=== PATIENT | male | born 1935 | race Caucasian/White ===

== ENCOUNTER → 2019-03-17 | Outpatient (CLI) | payer OTHER ==
[~2019-03-17] MED LIST: ASPI81CH PO; ROSU10TA PO
== END | disposition home or self-care (01) ==
LOC: LAB SHORT 14:21 → PLD 14:21
DX: D48.5 Neoplasm of uncertain behavior of skin (principal)
CPT/HCPCS: 88305

== ENCOUNTER 2024-05-07 12:59 | Inpatient (IN) | payer OTHER ==
[~2024-05-07] VITALS: Ht 167.6 cm; Wt 81.1 kg
[2024-05-07 14:04] LABS: Albumin, Blood 3.8 g/dL (3.4-5.0); Albumin/Globulin Ratio 0.9 (0.8-1.8); Bilirubin, Total 0.5 mg/dL (0.1-1.0); Calcium, Blood 9.3 mg/dL (8.5-10.1); Creatinine, Blood 0.79 mg/dL (0.60-1.20); Globulin, Blood 4.1 g/dL (2.2-4.0); Potassium, Blood 3.7 mmol/L (3.5-5.5); Total Protein, Blood 7.9 g/dL (6.4-8.2)
[2024-05-07] MEDS ORDERED: Morphine Sulfate 4 MG/1 ML Injection IV ONE (14:10)
[2024-05-07 14:17] LABS: BASOPHILS ABSOLUTE AUTO 0.02 K/mm3 (0.00-0.23); BASOPHILS PERCENT AUTO 0 % (0-2); EOSINOPHILS ABSOLUTE AUTO 0.04 K/mm3 (0.00-0.68); EOSINOPHILS PERCENT AUTO 0 % (0-6); Hematocrit 42.7 % (37.0-53.0); Hemoglobin 15.1 g/dL (13.5-17.5); IMMATURE GRAN ABSOLUTE AUTO 0.08 K/mm3 (0.00-0.10); IMMATURE GRAN PERCENT AUTO 1 % (0-1); LYMPHOCYTES ABSOLUTE AUTO 1.49 K/mm3 (0.84-5.20); LYMPHOCYTES PERCENT AUTO 12 % (21-46); MONOCYTES ABSOLUTE AUTO 0.83 K/mm3 (0.16-1.47); MONOCYTES PERCENT AUTO 7 % (4-13); Mean Corpuscular HGB 34.7 pg (26.0-34.0); Mean Corpuscular HGB Conc 35.4 g/dL (31.5-36.5); Mean Corpuscular Volume 98 fL (80-100); Mean Platelet Volume 9.6 fL (9.1-12.4); NEUTROPHILS ABSOLUTE AUTO 9.82 K/mm3 (1.96-9.15); NEUTROPHILS PERCENT AUTO 80 % (41-73); Platelet Count 196 K/mm3 (150-400); RDW Coefficient Variation 14.1 % (11.7-14.2); RDW Standard Deviation 51.7 fL (35.1-46.3); Red Blood Cell Count 4.35 M/mm3 (4.30-5.90); White Blood Cell Count 12.28 K/mm3 (4.00-11.30)
[2024-05-07] MEDS ORDERED: Ondansetron HCl 2 MG / ML 2ML Vial IV PRN (16:30)
[2024-05-07] MEDS ORDERED: FLU VACC TS2024-25(6MOS UP)/PF 45 MCG/0.5 ML SYRINGE IM SCH (16:30)
[2024-05-07] MEDS ORDERED: OxyCODONE 5 mg/Acetamin 325 mg TABLET PO PRN (16:30)
[2024-05-07] MEDS ORDERED: FentaNYL Citrate 50 MCG/ML 2 ML Injection IV PRN (16:35)
[2024-05-07 18:34] VITALS: BP 126/97
--- NOTE | 2024-05-07 18:38 | NUR ---
ARRIVED FROM THE ED VIA MAMADOU GÓMEZ, REPORT PAIN IS TOLERABLE ONCE SETTLED AND REPOSITIONED IN BED, ORIENTED TO ROOM AND CALL LIGHT SYSTEM, REPORT TO WADE MANCILLA.
[2024-05-07] MEDS ORDERED: OXYC5 PO (19:38)
[2024-05-07] MEDS ORDERED: PRED20 PO (19:38)
[2024-05-07] MEDS ORDERED: IBU800 M1 PO (19:39)
[2024-05-07] MEDS ORDERED: Preservision S1 EACH PO (19:44)
[2024-05-07] MEDS ORDERED: Sennosides 8.6 MG Tab PO SCH (21:00)
[2024-05-07] MEDS ORDERED: NS 1,000 ML IV SCH (23:00)
[2024-05-08] VITALS (17 sets, daily range): BP systolic 125–163; BP diastolic 57–89
--- NOTE | 2024-05-08 05:33 | NUR ---
SHIFT SUMMARY PT CHANGE OF SHIFT ADMIT FOR LEFT HIP FRACTURE. PT HAS RESTED MOST OF THE NIGHT. PAIN MANANGED WITH MEDS PER EMAR. ORTHO HAS BEEN CONSULTED. PT NPO SINCE MIDNIGHT FOR POSSIBLE PROCEDURE TODAY. PT VOIDING. IVF INFUSING. BED IN LOWEST POSITION, CALL LIGHT WITHIN REACH.
--- NOTE | 2024-05-08 07:16 | NUR ---
BEDSIDE REPORT RECIEVED. PT RESTING IN BED, A&O X4, VSS, RESPIRATIONS EVEN AND UNLABORED. PAIN MANAGED AT THIS TIME. CALL LIGHT WITHIN REACH.
[2024-05-08] MEDS ORDERED: Tranexamic Acid 100 ML IV SCH (10:45)
[2024-05-08] MEDS ORDERED: CeFAZolin Sodium 2,000 MG in NS 100 ML IV SCH (10:45)
[2024-05-08] MEDS ORDERED: Vancomycin HCL 1,000 MG in NS 250 ML IV SCH (10:45)
[2024-05-08] MEDS ORDERED: Lactated Ringer's 1,000 ML IV SCH (11:05)
--- NOTE | 2024-05-08 11:54 | NUR ---
PT TO OR
[2024-05-08] MEDS ORDERED: propofoL 20 ML IV ONE (12:19)
[2024-05-08] MEDS ORDERED: FentaNYL Citrate 50 MCG/ML 2 ML Injection ONE (12:21)
[2024-05-08] MEDS ORDERED: Ondansetron HCl 2 MG / ML 2ML Vial ONE (13:03)
[2024-05-08] MEDS ORDERED: Dexamethasone Sod Phos 10 MG/ML 1ML VIAL ONE (13:03)
[2024-05-08] MEDS ORDERED: OxyCODONE HCL 5 MG TAB PO PRN (13:05)
[2024-05-08] MEDS ORDERED: HYDROmorphone HCl/Pf 1MG SYR ONE ×2 (13:20→15:10)
[2024-05-08] MEDS ORDERED: EpiNEPhrine 1 MG/1 ML 1ML Vial ONE (14:18)
[2024-05-08] MEDS ORDERED: Bupivacaine 0.5% HCl 5 MG/ML 30MLVIAL ONE (14:18)
[2024-05-08] MEDS ORDERED: Magnesium Hydroxide Conc 10 ML UDC PO PRN (15:20)
[2024-05-08] MEDS ORDERED: NS KCl 20mEq 1,000 ML IV SCH (15:20)
[2024-05-08] MEDS ORDERED: FLU VACC TS2024-25(6MOS UP)/PF 45 MCG/0.5 ML SYRINGE IM SCH (15:20)
[2024-05-08] MEDS ORDERED: Bisacodyl 10 MG Supp PR PRN (15:20)
--- NOTE | 2024-05-08 16:38 | NUR ---
PT ARRIVED BACK TO UNIT FROM PACU AT APPROXIMATELY 1600. VSS. WAKES TO VOICE BUT STATED TIRED. 02 SATS MID 90S ON 4L NC. RR 12-13. SLEEPS WHEN UNDISTURBED. PLACED ICE PACK TO L HIP FOR COMFORT. BULKY DRESSING TO L HIP CDI. CALL LIGHT IN REACH. LR HANGING TO GRAVITY. TXA ADMINISTERED IN PACU.
--- NOTE | 2024-05-08 17:06 | NUR ---
PT SATS DECREASING TO 87% ON 4L NC. RR 12. INCREASED 02 TO 5L.
--- NOTE | 2024-05-08 17:14 | NUR ---
SUMMARY PT SLEEPING SOUNDLY. 02 SATS LOW TO MID 90S ON 5L NC. WAKES TO VOICE. BULKY DRESSING TO L HIP CDI. ICE PACK TO L HIP FOR COMFORT. CALL LIGHT IN REACH.
[2024-05-08] MEDS ORDERED: Misc. Capsule PO SCH (21:00)
[2024-05-08] MEDS ORDERED: Docusate Sodium 100 MG Cap PO SCH (21:00)
[2024-05-09 01:11] VITALS: BP 135/63
[2024-05-09 04:51] VITALS: BP 140/61
--- NOTE | 2024-05-09 05:50 | NUR ---
NOC SUMMARY- PT HAS REMAINED COMFORTABLE THROUGHOUT SHIFT. PT DRESSING IS C/D/I. PT HAS BEEN VOIDING WELL VIA URINAL. PT TOLRATING PO FLUIDS WELL. PT HAS NO ISSUES. CALL LIGHT IN REACH.
[2024-05-09 06:11] LABS: BASOPHILS ABSOLUTE AUTO 0.01 K/mm3 (0.00-0.23); BASOPHILS PERCENT AUTO 0 % (0-2); EOSINOPHILS ABSOLUTE AUTO 0.02 K/mm3 (0.00-0.68); EOSINOPHILS PERCENT AUTO 0 % (0-6); Hematocrit 34.9 % (37.0-53.0); Hemoglobin 12.5 g/dL (13.5-17.5); IMMATURE GRAN ABSOLUTE AUTO 0.07 K/mm3 (0.00-0.10); IMMATURE GRAN PERCENT AUTO 1 % (0-1); LYMPHOCYTES ABSOLUTE AUTO 1.26 K/mm3 (0.84-5.20); LYMPHOCYTES PERCENT AUTO 9 % (21-46); MONOCYTES ABSOLUTE AUTO 0.91 K/mm3 (0.16-1.47); MONOCYTES PERCENT AUTO 7 % (4-13); Mean Corpuscular HGB Conc 35.8 g/dL (31.5-36.5); Mean Corpuscular Volume 98 fL (80-100); Mean Platelet Volume 9.9 fL (9.1-12.4); NEUTROPHILS ABSOLUTE AUTO 11.47 K/mm3 (1.96-9.15); NEUTROPHILS PERCENT AUTO 84 % (41-73); Platelet Count 144 K/mm3 (150-400); RDW Coefficient Variation 13.7 % (11.7-14.2); RDW Standard Deviation 49.7 fL (35.1-46.3); Red Blood Cell Count 3.57 M/mm3 (4.30-5.90); White Blood Cell Count 13.74 K/mm3 (4.00-11.30)
[2024-05-09 06:29] LABS: Bun/Creatinine Ratio 32.9 (12.0-20.0); Calcium, Blood 8.3 mg/dL (8.5-10.1); Creatinine, Blood 0.61 mg/dL (0.60-1.20)
[2024-05-09 07:35] VITALS: BP 139/62
[2024-05-09] MEDS ORDERED: Enoxaparin 40 MG/0.4 ML SYR SC SCH (09:00)
[2024-05-09] MEDS ORDERED: Atorvastatin 10 MG Tab PO SCH (09:00)
[2024-05-09] MEDS ORDERED: Triamter/HCthiazide 75/50 MG 1 TAB TAB PO SCH (09:00)
[2024-05-09 16:20] VITALS: BP 139/63
--- NOTE | 2024-05-09 17:37 | NUR ---
PATIENT IS ALERT AND ORIENTED AND COOPERATIVE WITH CARE. ON 3L2 O2 VIA NC. DESATS WITH EXERTION. UP TO CHAIR FOR DINNER. 1PA FWW AND GAITBELT. FRIENDS VISITED THE PT TODAY. PT WORKED WITH PT AND OT TODAY. PAIN MANAGED PER EMAR. IVF DC'D. NO IV ACCESS ORDER IN PLACE. WILL CONTINUE TO MONITOR
[2024-05-09 19:51] VITALS: BP 138/55
[2024-05-10 03:12] VITALS: BP 143/59
--- NOTE | 2024-05-10 04:47 | NUR ---
SHIFT SUMMARY AOX4. VSS. POD 2-L KIM HIP. POSTERIOR AQUACEL C/D/I. PT ABLE TO MOVE & WIGGLE FEET/TOES. CAP REFILL <3 SEC, STRONG PULSE. DENIES N/T. REPORTS CHRONIC BACK PAIN & MEDICATED W/5MG OXYCODONE, PT REPORTED MILD RELIEF & ABLE TO REST. 1P ASSIST W/FWW & GB W/AMBULATION. SPLINT TO RING FINGER, BRUISED, ABLE TO GROSSLY MOVE FINGER. DENIES N/V. TOLERATING PO. VOIDING IND W/URINAL. CALL LIGHT IN REACH.
[2024-05-10 07:34] VITALS: BP 141/60
[2024-05-10] MEDS ORDERED: ASPI81CH PO (13:38)
[2024-05-10] MEDS ORDERED: DOCU100 PO (13:39)
[2024-05-10] MEDS ORDERED: Sen-O-Tab8.6 MG PO (13:39)
--- NOTE | 2024-05-10 15:16 | NUR ---
DISCHARGE SUMMARY S/P L HIP FX REPAIRED WITH POSTERIOR KIM HIP, A/OX4, VSS, TOLERATING PO, ABLE TO STAND TRANSFER AND TAKE A FEW STEPS BEARING WEIGHT ON BOTH LEGS, AQUACELL DRESSING IN PLACE WITH SMALL AMT DRAINAGE NOTED. DISCUSED DISCHARGE INSTRUCTIONS WITH HIM AND HIS SON INCLUDING HOME CARE, MEDICATIONS, AND FOLLOW UP APPOINTMENTS WITH ORTHO AND HIS PCP. PROVIDED ADDITIONAL DRESSINGS FOR CHANGES AT HOME. NO QUESTIONS AT THIS TIME.
== END 2024-05-10 14:30 | disposition home or self-care (01) | DRG 522 ==
LOC: ER 12:59 → SURS 16:27
PROVIDERS: Internal Medicine; Orthopaedic Surgery; Student in an Organized Health Care Education/Training Program; ADMIT Student in an Organized Health Care Education/Training Program
PROC: 0SRS0J9 Replacement of Left Hip Joint, Femoral Surface with Synthetic Substitute, Cemented, Open Approach (ICD-10-PCS; principal; 2024-05-08 12:30)
DX: S72.002A Fracture of unspecified part of neck of left femur, initial encounter for closed fracture (principal); W18.30XA Fall on same level, unspecified, initial encounter; G89.29 Other chronic pain; E78.5 Hyperlipidemia, unspecified; S62.605A Fracture of unspecified phalanx of left ring finger, initial encounter for closed fracture; E87.70 Fluid overload, unspecified; M54.9 Dorsalgia, unspecified; D72.828 Other elevated white blood cell count; F17.290 Nicotine dependence, other tobacco product, uncomplicated; Z98.890 Other specified postprocedural states; Z98.49 Cataract extraction status, unspecified eye; Z88.0 Allergy status to penicillin; Z88.8 Allergy status to other drugs, medicaments and biological substances; Z79.899 Other long term (current) drug therapy; Z79.891 Long term (current) use of opiate analgesic; Z91.040 Latex allergy status
CPT/HCPCS: 36415; 71045; 72170; 73552; 80048; 80053; 83735; 83880; 85025; 93005; 93010; 96374; 97110; 97112; 97161; 97165; 97530; 99284-25; A9270; C1713; C1776; J0171; J0690; J1100; J1171; J1650; J2270; J2405; J2704; J3010; J3370; J3480; J7030; J7050; J7120